=== PATIENT | female | born 1985 | race Caucasian/White ===

== ENCOUNTER 2017-01-13 11:43 | Emergency (ER) ==
[2017-01-13 11:49] VITALS: BP 140/82; TEMP 97.1; BMI 23.6
--- NOTE | 2017-01-13 12:16 | ED.PDOC ---
General ED Provider: Dr. KIMBERLEY MCADAMS Chief Complaint: Sore Throat Stated Complaint: sore throat Time Seen by Physician: 12:00 Mode of Arrival: Walk-In Information Source: Patient Exam Limitations: No limitations Primary Care Provider: KAREN CARREON Nursing and Triage Documentation Reviewed and Agree: Yes EENT Complaint Exam - Throat Complaint/Exam Symptoms Are: Still present Timimg: Intermittent Initial Severity: Moderate Current Severity: Moderate Alleviating: Reports: None Associated Signs and Symptoms: Denies: Fever, Dysphagia, Drooling, Foreign body sensation, Chills, Cough, Wheezing, Hoarseness, Sinus discomfort, Nasal congestion, Difficulty breathing, Lethargy, Irritability, Decreased activity, Vomiting, Diarrhea, Decreased hearing, Ear drainage Uvula Midline: Yes Cat-tonsillar Fluctuence: No Scarlatinaform Rash Present: No Stridor Present: No Sinus Tenderness Present: No Tonsillar Hypertrophy Present: No Tonsillar Exudate Present: No Cat-tonsillar Swelling Present: No Adenopathy Present: No Splenomegaly Present: No Differential Diagnoses: Pharyngitis Review of Systems - Review Of Systems Constitutional: Reports: No symptoms Eyes: Reports: No symptoms Ears, Nose, Mouth, Throat: Reports: Throat pain Respiratory: Reports: No symptoms Cardiac: Reports: No symptoms GI: Reports: No symptoms : Reports: No symptoms Musculoskeletal: Reports: No symptoms Skin: Reports: No symptoms Neurological: Reports: No symptoms Endocrine: Reports: No symptoms Hematologic/Lymphatic: Reports: No symptoms All Other Systems: Reviewed and Negative Past Medical History - Past Medical History Previously Healthy: Yes Endocrine: Reports: None Cardiovascular: Reports: None Respiratory: Reports: None Hematological: Reports: None Gastrointestinal: Reports: None Genitourinary: Reports: None Neuro/Psych: Reports: None Musculoskeletal: Reports: None Cancer: Reports: None Last Menstrual Period: 01/10/17 - Surgical History General Surgical History: Reports: Unknown - Family History Family History: Reports: Unknown - Social History Smoking Status: Never smoker Hx Substance Use: No Alcohol Screening: None Physical Exam - Physical Exam Appearance: Well-appearing, No pain distress, Well-nourished Eyes: MANDI, EOMI, Conjunctiva clear ENT: Ears normal, Nose normal, Erythema Respiratory: Airway patent, Breath sounds clear, Breath sounds equal, Respirations nonlabored Cardiovascular: RRR, Pulses normal, No rub, No murmur GI/: Soft, Nontender, No masses, Bowel sounds normal, No Organomegaly Musculoskeletal: Normal strength, ROM intact, No edema, No calf tenderness Skin: Warm, Dry, Normal color Neurological: Sensation intact, Motor intact, Reflexes intact, Cranial nerves intact, Alert, Oriented Psychiatric: Affect appropriate, Mood appropriate Critical Care Note - Critical Care Note Total Time (mins): 0 Course - Course Vital Signs: Temp Pulse Resp BP Pulse Ox 01/13/17 11:43 97.1 F L 93 H 18 140/82 99 Departure - Departure Time of Disposition: 12:15 Disposition: HOME SELF-CARE Discharge Problem: Sore throat symptom Pharyngitis Qualifiers: Pharyngitis/tonsillitis etiology: unspecified etiology Qualifier Code: (J02.9) Acute pharyngitis, unspecified Instructions: Pharyngitis (ED), Strep Throat (ED) Condition: Good Pt referred to PMD for follow-up: No Additional Instructions: Please call your Family Physician as soon as possible to schedule a follow-up appointment. Allergies/Adverse Reactions: Allergies BAND-AID Adverse Reaction (Uncoded 01/13/17 11:49) Home Medications: Ambulatory Orders Dextroamphetamine/Amphetamine [Adderall 15 mg Tablet] 15 mg PO DIRECTED 09/17 Dextroamphetamine/Amphetamine [Adderall 30 Mg Tablet] 30 mg PO TID #60
== END 2017-01-13 12:24 | disposition home or self-care (01) ==
LOC: ED 11:43
DX: J02.9 Acute pharyngitis, unspecified (principal)
CPT/HCPCS: 99282

== ENCOUNTER 2017-01-29 15:47 | Outpatient (CLI) ==
--- NOTE | 2017-01-29 16:41 | DI ---
EXAM: Abdomen one view HISTORY: Hematuria, unspecified COMPARISON: CT 08/21/2016 TECHNIQUE: Single view abdomen was performed. FINDINGS: There are no dilated loops of small bowel. There is air and stool throught the colon wit h moderate fecal retention. Several small several calcifications project over the left renal shadow . Right nephrolithiasis present on prior CT is questionably visualized.There are no acute abnormalit ies of the bones. IMPRESSION: 1. Left nephrolithiasis. Right nephrolithiasis present on prior CT is questionably visualized. 2. Moderate fecal retention.
== END 2017-01-29 15:48 | disposition home or self-care (01) ==
LOC: RAD 15:47
PROVIDERS: ATTEND Nurse Practitioner Family
DX: R31.9 Hematuria, unspecified (principal)

== ENCOUNTER 2017-02-04 14:08 | Outpatient (CLI) ==
--- NOTE | 2017-02-04 15:02 | US ---
EXAM: Right lower extremity venous doppler. HISTORY: Right leg pain. COMPARISON: None available. TECHNIQUE: Multiple grayscale and color doppler images were obtained. FINDINGS: There is normal flow, compressibility and augmentation of flow within the right common fe moral, greater saphenous, profunda, femoral, popliteal, posterior tibial, anterior tibial and perone al veins. IMPRESSION: No evidence for right lower extremity deep vein thrombosis at the levels examined.
== END 2017-02-04 14:09 | disposition home or self-care (01) ==
LOC: RAD 14:08
PROVIDERS: ATTEND Nurse Practitioner Family
DX: M79.651 Pain in right thigh (principal); R53.83 Other fatigue

== ENCOUNTER 2017-04-12 13:13 | Outpatient (CLI) | END 2017-04-12 13:14 | disposition home or self-care (01) | LOC: LAB 13:13 | PROVIDERS: ATTEND Nurse Practitioner Family | DX: J02.9 Acute pharyngitis, unspecified (principal) | CPT/HCPCS: 87651; 87880 ==